=== PATIENT | male | born 1950 ===

== ENCOUNTER → 2020-07-28 | Outpatient (CLI) ==
--- NOTE | 2020-07-29 09:24 | RAD ---
EXAM: Bilateral knees, standing view; right knee, 2 views. HISTORY: Pain. COMPARISON: None. FINDINGS: A standing view both knees and lateral and sunrise views of the right knee are obtained. Th ere is moderate to severe medial compartment joint space narrowing, subchondral sclerosis and spurrin g involving the medial compartment of the left knee and lateral compartment of the right knee. There is mild right patellofemoral compartment spurring. There is mild right genu valgus and left genu varu s. There is a trace right knee effusion. IMPRESSION: 1. Moderate to severe lateral and mild patellofemoral compartment osteoarthritis of the right knee wi th slight genu valgus and a trace joint effusion. 2. Moderate to severe medial compartment osteoarthritis of the left knee with slight genu varus. Electronically signed by: Mirella Bosch MD (07/29/2020 9:22 AM) [id number]
== END ==
LOC: PMGORTHO 15:24
PROVIDERS: ATTEND Physician Assistant
DX: M17.0 Bilateral primary osteoarthritis of knee (principal)
CPT/HCPCS: 73560; 73565